=== PATIENT | male | born 1980 | race Native Hawaiian/Other Pacific Islander ===

== ENCOUNTER 2017-05-03 16:16 | Emergency (ER) | payer OTHER ==
[2017-05-03 16:58] VITALS: BP 112/79; PULSE 66; RESP 16; TEMP 98.8; O2SAT 99
[2017-05-03] MEDS ORDERED: Lidocaine 1% Inj (20ml) INFIL ONE (17:16)
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
[2017-05-03] MEDS ORDERED: Lidocaine 1% Inj (20ml) ONE (17:40)
== END 2017-05-03 19:05 | disposition home or self-care (01) ==
LOC: H.ER 16:16
DX: S01.511A Laceration without foreign body of lip, initial encounter (principal); S61.411A Laceration without foreign body of right hand, initial encounter; V19.9XXA Pedal cyclist (driver) (passenger) injured in unspecified traffic accident, initial encounter; Y93.55 Activity, bike riding

== ENCOUNTER 2017-05-07 12:50 | Emergency (ER) | payer OTHER ==
[2017-05-07 13:07] VITALS: BP 123/66; PULSE 63; RESP 18; TEMP 98.3; O2SAT 100
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
== END 2017-05-07 14:05 | disposition home or self-care (01) ==
LOC: H.ER 12:50
DX: Z48.02 Encounter for removal of sutures (principal)